=== PATIENT | female | born 1995 | race Caucasian/White ===

== ENCOUNTER 2017-05-05 15:44 | Emergency (ER) | payer MEDICAID, OTHER ==
[2017-05-05 15:46] VITALS: BP 141/88; PULSE 98; RESP 12; TEMP 98.2; O2SAT 99
--- NOTE | 2017-05-05 18:16 | PD ---
HPI Chief Complaint: Mail Clerk Problem/Complaint Time Seen by Provider: 17:23 Travel History International Travel<30 days: No Contact w/Intl Traveler<30days: No Traveled to known affect area: No History of Present Illness HPI The patient was seen and examined in the presence of the nurse. This patient complains of irregular vaginal bleeding. She's had a few days of light vaginal bleeding come and go over the last 3 weeks. Bleeding is been light. No presyncopal symptoms. She is sexually active not using protection. PFSH Past Medical History Medical History: Denies Significant Hx Diminished Hearing: No Immunizations Current: Yes Tetanus Vaccination: < 5 Years Influenza Vaccination: No ?: Not : 1 Miscarriage: 1 Past Surgical History Surgical History: No Previous Surgery Social History Alcohol Use: No Tobacco Use: No Substance Use: No Allergies-Medications (Allergen,Severity, Reaction): Coded Allergies: No Known Allergies (Verified Adverse Reaction, Unknown, 05/05/17) Reported Meds & Prescriptions Reported Meds & Active Scripts Active No Active Prescriptions or Reported Medications Review of Systems General / Constitutional: No: Fever HENT: No: Headaches Cardiovascular: No: Chest Pain or Discomfort Physical Exam Narrative GENERAL: Well-nourished, well-developed patient in no apparent distress. SKIN: Focused skin assessment reveals no rash and nodules. Skin is Warm and dry. HEAD: Atraumatic. Normocephalic. EYES: Pupils equal and round. No scleral icterus. No injection or drainage. ENT: No nasal bleeding or discharge. Mucous membranes pink and moist. NECK: Trachea midline. No JVD. CARDIOVASCULAR: Regular rate and rhythm. No murmur appreciated. RESPIRATORY: No accessory muscle use. Clear to auscultation. Breath sounds equal bilaterally. GASTROINTESTINAL: Abdomen soft, non-tender, nondistended. Hepatic and splenic margins not palpable. MUSCULOSKELETAL: No obvious deformities. No clubbing. No cyanosis. No edema. NEUROLOGICAL: Awake and alert. No obvious cranial nerve deficits. Motor grossly within normal limits. Normal speech. PSYCHIATRIC: Appropriate mood and affect; insight and judgment normal. Pelvic: Speculum exam reveals no discharge in the vault. Scant dried blood in the vault. No cervical motion tenderness or lesions Data Data Last Documented VS Vital Signs Date Time Temp Pulse Resp B/P (MAP) Pulse Ox O2 Delivery O2 Flow Rate FiO2 12/13/17 16:51 16 05/05/17 15:46 98.2 98 141/88 (105) 99 Orders Orders Ed Urine Pregnancytest Poc (05/05/17 17:27) MDM Medical Decision Making Medical Screen Exam Complete: Yes Emergency Medical Condition: Yes Medical Record Reviewed: Yes Differential Diagnosis Ectopic , miscarriage, vaginitis Narrative Course I have reviewed the patient's electronic medical record. Patient's exam is benign and vitals are normal She seems asymptomatic Urine is negative Recommend outpatient gynecology or family physician follow-up Diagnosis Primary Impression: Vaginal bleeding Additional Instructions: The patient was advised to follow up with their physician or farm mechanic and return if they worsen. Med/Other Pt SpecificInfo: Other Scripts No Active Prescriptions or Reported Meds Disposition: 01 DISCHARGE HOME Condition: Stable Lavell Robledo MD May 05, 2017 18:16
[2017-05-05 18:23] VITALS: BP 102/77; TEMP 97.8
== END 2017-05-05 18:23 | disposition home or self-care (01) ==
LOC: NEPD 15:44
DX: N93.9 Abnormal uterine and vaginal bleeding, unspecified (principal)
CPT/HCPCS: 84703; 99282